=== PATIENT | male | born 1980 | race Caucasian/White ===

== ENCOUNTER → 2024-01-16 09:08 | Outpatient (REF) | payer MEDICARE, OTHER, SELFPAY ==
--- NOTE | 2024-01-17 14:24 | EEG.RPT ---
Electroencephalogram Report
Recording
Date of EE01/17/24
Type of EEG: Routine and Ambulatory
Length of EEG recordin day 5 minutes
Done with Video Recording: No
Patient Status: Outpatient
Recording Conditions: Awake, Drowsy and Asleep
Hyperventilation Performed: Yes
Photic Stimulation Performed: Yes
Report
24 HOUR AMBULATORY EEG SUMMARY
EEG CONCLUSION(S):
Unremarkable EEG for age in wakefulness and in sleep
CLINICAL CORRELATION:
A normal EEG may not rule out a diagnosis of epilepsy.
The patient�s logs were not returned. Consideration for multiple day monitoring may be given.
Clinical correlation is advised.
METHODS:
A 21 channel digitized electroencephalogram (EEG) was initiated in the [facility]. The patient wore the device outside of the laboratory and returned after 24 hours for electrode and recorder removal. The 10/20
international system of electrode placement was used with bipolar electrode montage recorded. ECG was monitored. Persyst quantitiative EEG analysis was performed.
IMPRESSION(S):
Quality
Good
Background
Maximal wakefulness: alpha
There was a normal anterior-posterior voltage gradient. With eye opening the background activity changed. No significant asymmetries of background activity noted.
Sleep
Drowsiness was suggested by slowing of the background rhythms
Stage I sleep was recorded
Stage 2 sleep was recorded
ECG
Unremarkable
Persyst Review:
Ravinder files failed to demonstrate abnormalities
Seizure detections failed to demonstrate abnormalities
== END ==
LOC: EEG 09:08
PROVIDERS: ATTENDING PHYSICIAN Psychiatry & Neurology Neurology
DX: G40.B09 Juvenile myoclonic epilepsy, not intractable, without status epilepticus (principal)
CPT/HCPCS: 95708